=== PATIENT | female | born 1970 | race American Indian/Alaskan Native ===

== ENCOUNTER 2017-07-27 19:25 | Emergency (ER) | payer SELFPAY ==
[2017-07-27] MEDS ORDERED: NACL 0.9% 500 ML 500 ML IV ONE (19:43)
[2017-07-27] MEDS ORDERED: MOTRIN PO ONE ×3 (19:50→19:56)
[2017-07-27 20:11] LABS: Basophils % (Auto) 0.5 % (0.0-1.8); Hematocrit 41.9 % (30.3-42.9); Hemoglobin 14.5 gm/dl (10.1-14.3); Lymphocytes # (Auto) 0.8 K/mm3 (1.2-5.4); Lymphocytes % (Auto) 18.3 % (13.4-35.0); Mean Corpuscular HGB Conc 35 % (30-34); Mean Corpuscular Hemoglobin 32 pg (28-32); Mean Corpuscular Volume 92 fl (79-97); Monocytes # (Auto) 0.6 K/mm3 (0.0-0.8); Monocytes % (Auto) 13.5 % (0.0-7.3); Platelet Count 132 K/mm3 (140-440); Red Blood Count 4.56 M/mm3 (3.65-5.03); Red Cell Distribution Width 12.9 % (13.2-15.2)
[2017-07-27 20:22] LABS: INR 0.9 (0.87-1.13)
[2017-07-27 20:53] LABS: Bacteria,Urine 4+ /HPF (Negative); Bilirubin,Urine NEG (Negative); Blood,Urine SM (Negative); Color,Urine Yellow (Yellow); Mucus,Urine FEW /HPF; Protein,Urine <15 mg/dL mg/dL (Negative); Urobilinogen,Urine < 2.0 mg/dL (<2.0)
[2017-07-27] MEDS ORDERED: NACL 0.9% 1000 ML 1,000 ML IV ONE (20:55)
--- NOTE | 2017-07-27 20:55 | Emergency Department Report ---
ED General Adult HPI - General Chief complaint: Fever Stated complaint: SOB,CHEST PAIN,NECK,THROAT PAIN Time Seen by Provider: 07/27/17 20:43 Source: patient Mode of arrival: Ambulatory Limitations: No Limitations - History of Present Illness Initial comments: 46-year-old female here from [facility] she does have a history in 2016 of stage IV colon CA that the resected the also resected liver metastases and treated her with chemotherapy. She is here stating that she lost to follow-up for the last year has not been getting intermittent checkups. She thinks she is cancer free at this time but hasn't followed up. She is here with 2 days of fever up to 1 02.4 with yellowish cough. She does smoke and drink. No stiff neck or headache. She does have a sore throat clearing of intermittent epigastric pain with intermittent nausea vomiting with exposure to someone also had similar symptoms last week otherwise no night sweats or hemoptysis no recent travel -: Gradual, days(s) Location: chest, abdomen Radiation: non-radiation Severity scale (0 -10): 7 Improves with: none Worsens with: none Associated Symptoms: cough, fever/chills, malaise, nausea/vomiting, weakness. denies: chest pain, diaphoresis, headaches, loss of appetite, rash, seizure, shortness of breath - Related Data Previous Rx's Medication Instructions Recorded Last Taken Type Sulfamethoxazole/Trimethoprim 1 each PO BID #10 tablet 07/27/17 Unknown Rx [Bactrim DS TAB] Allergies Allergy/AdvReac Type Severity Reaction Status Date / Time No Known Allergies Allergy Unverified 07/27/17 19:34 ED Review of Systems ROS: Stated complaint: SOB,CHEST PAIN,NECK,THROAT PAIN Other details as noted in HPI Comment: All other systems reviewed and negative Constitutional: fever, malaise Eyes: denies: eye discharge, vision change ENT: denies: dental pain, hearing loss, epistaxis Respiratory: cough. denies: orthopnea, shortness of breath, SOB with exertion, SOB at rest, stridor Cardiovascular: denies: chest pain, palpitations, dyspnea on exertion, orthopnea , edema, syncope, paroxysmal nocturnal dyspnea Gastrointestinal: nausea, diarrhea. denies: constipation, hematemesis, melena, hematochezia Neurological: denies: headache, weakness, numbness, paresthesias, confusion, abnormal gait, vertigo ED Past Medical Hx - Past Medical History Previous Medical History?: Yes Hx Liver Disease: Yes (60% of Liver removed due to cancer) Hx of Cancer: Yes (Stage IV Colon Cancer) - Surgical History Past Surgical History?: Yes Additional Surgical History: Colon resection surgeries x 3 - Social History Smoking Status: Current Every Day Smoker - Medications Home Medications: Home Medications Medication Instructions Recorded Confirmed Last Taken Type Sulfamethoxazole/Trimethoprim 1 each PO BID #10 tablet 07/27/17 Unknown Rx [Bactrim DS TAB] ED Physical Exam - General Limitations: No Limitations General appearance: alert, anxious - Head Head exam: Present: atraumatic, normocephalic - Eye Eye exam: Present: PERRL, EOMI - ENT ENT exam: Present: other (no mass or exudate positive erythema) - Neck Neck exam: Present: normal inspection. Absent: tenderness, meningismus - Respiratory Respiratory exam: Present: normal lung sounds bilaterally, rhonchi. Absent: respiratory distress, wheezes, rales, decreased breath sounds, prolonged expiratory - Cardiovascular Cardiovascular Exam: Present: regular rate, normal rhythm, normal heart sounds - GI/Abdominal GI/Abdominal exam: Present: soft. Absent: distended, tenderness, guarding, rebound, rigid, mass, pulsatile mass - Extremities Exam Extremities exam: Present: normal inspection, normal capillary refill. Absent: joint swelling, calf tenderness - Back Exam Back exam: Present: normal inspection. Absent: CVA tenderness (L), muscle spasm , paraspinal tenderness, vertebral tenderness - Neurological Exam Neurological exam: Present: alert, oriented X3, CN II-XII intact. Absent: motor sensory deficit - Skin Skin exam: Absent: erythema, urticaria, vesicles, petechiae ED Course Vital Signs 07/27/17 07/27/17 07/27/17 19:37 19:57 20:44 Temperature 102.4 F H 102 F H Pulse Rate 120 H 120 H Respiratory 20 20 16 Rate Blood Pressure 114/73 Blood Pressure 112/72 [Left] O2 Sat by Pulse 97 95 Oximetry 07/27/17 07/27/17 07/27/17 20:57 21:40 23:00 Temperature 98.8 F 97.9 F Pulse Rate 99 H 97 H Respiratory 16 16 16 Rate Blood Pressure Blood Pressure 107/62 105/58 [Left] O2 Sat by Pulse 99 98 Oximetry ED Medical Decision Making - Lab Data Result diagrams: 07/27/17 19:47 07/27/17 19:47 - Radiology Data Radiology results: report reviewed - Medical Decision Making Laboratory studies negative rapid strep negative urine negative lactic acid decision was read as negative by the radiologist CT was ordered given her abdominal distention with nausea vomiting previous abdominal surgery to her colon cancer is no obstruction appreciated she did have some mild signs that would suggest a enteritis. She also has a productive sputum with a low-grade temp without pneumonia she was discharged on antibiotics for follow-up she has no acute abdomen at this time is nontoxic tolerated by mouth supple neck stable for outpatient follow-up Critical care attestation.: If time is entered above; I have spent that time in minutes in the direct care of this critically ill patient, excluding procedure time. ED Disposition Clinical Impression: Febrile illness, acute, Bronchitis, Gastroenteritis Disposition: TO HOME OR SELFCARE Is pt being admited?: No Condition: Stable Instructions: Acute Bronchitis (ED), Fever in Adults (ED) Additional Instructions: See the doctor listed or your regular doctor return immediately if new or alarming symptoms Prescriptions: Sulfamethoxazole/Trimethoprim [Bactrim DS TAB] 1 each PO BID #10 tablet Referrals: DELMI JOHNSON MD [Primary Care Provider] - 3-5 Days STEFAN LITTLE MD [Staff Physician] - 3-5 Days Time of Disposition: 23:41
[2017-07-27 21:22] LABS: Albumin 4.1 g/dL (3.9-5)
[2017-07-27 21:41] LABS: Alanine Aminotransferase 22 units/L (7-56); BUN/Creatinine Ratio 10; Blood Urea Nitrogen 7 mg/dL (7-17); Calcium 8.8 mg/dL (8.4-10.2); Hemolysis Index 6
--- NOTE | 2017-07-27 22:59 | Cat Scan Report ---
FINAL REPORT PROCEDURE: CT ABDOMEN PELVIS W CON TECHNIQUE: Computerized axial tomography of the abdomen and pelvis was performed after the IV injection of iodinated nonionic contrast. HISTORY: hx of partial colectomy/abd pain COMPARISON: No prior studies are available for comparison. FINDINGS: Visualized lower thorax: No significant abnormality. Liver: There are clips at the border of the right liver, with apparent partial resection. Spleen: Normal size and attenuation. Gallbladder and biliary system: The gallbladder is not well-visualized and may be absent or contracted. Pancreas: Normal. Adrenals: Normal. Kidneys: Normal. GI tract: There has been partial colectomy. Limited evaluation of the bowel loops due to lack of oral contrast. No acute inflammation is seen. Nonspecific air-fluid levels are seen in the colon, which can be seen with a diarrhea producing illness. No evidence of obstruction. Lymph nodes and mesentery: Normal. Vasculature: There are prominent veins in the pelvis which are nonspecific but can be associated with pelvic congestion syndrome. Bladder: Normal. Reproductive organs: Normal. Peritoneum: No free fluid. Musculoskeletal structures: No significant abnormality. Other: None. IMPRESSION: Air-fluid levels are seen in the colon which can be seen with a diarrhea producing illness. Consider further evaluation with oral contrast if symptoms persist. Otherwise no obvious bowel obstruction or inflammation is seen. Prominent vessels in the pelvis can be associated with pelvic congestion syndrome
--- NOTE | 2017-07-27 23:00 | XRay Report ---
FINAL REPORT PROCEDURE: XR CHEST ROUTINE 2V TECHNIQUE: PA and lateral chest radiographs were obtained. CPT 71422 HISTORY: Burning Cough, SOB COMPARISON: No prior studies are available for comparison. FINDINGS: Heart: Normal. Mediastinum/Vessels: Normal. Lungs/Pleural space: No infiltrate, effusion, or pneumothorax. Bony thorax: No acute osseous abnormality. Other: IMPRESSION: No pulmonary infiltrates are identified.
[2017-07-27 23:55] VITALS: BP 104/58
[2017-07-28] MEDS ORDERED: TYLENOL PO ONE (00:23)
[2017-07-28] MEDS ORDERED: TYLENOL ONE (00:23)
== END 2017-07-28 01:44 | disposition home or self-care (01) ==
LOC: ED 19:25
DX: J40 Bronchitis, not specified as acute or chronic (principal); K52.9 Noninfective gastroenteritis and colitis, unspecified; R50.9 Fever, unspecified; F17.200 Nicotine dependence, unspecified, uncomplicated
CPT/HCPCS: 36415; 71046; 74177; 80053; 81001; 82140; 82805; 84703; 85025; 85610; 87040; 87086; 87116; 87430; 93005; 93010; 96360; 99285; J7030; J7040; Q9967

== ENCOUNTER 2018-06-06 09:38 | Inpatient (IN) | payer MEDICARE ==
[2018-06-06] MEDS ORDERED: NACL 0.9% 1000 ML 1,000 ML IV ONE (10:08)
[2018-06-06 10:31] LABS: Bacteria,Urine 1+ /HPF (Negative); Bilirubin,Urine NEG (Negative); Blood,Urine NEG (Negative); Color,Urine Straw (Yellow); Protein,Urine <15 mg/dL mg/dL (Negative); Urobilinogen,Urine < 2.0 mg/dL (<2.0)
[2018-06-06 10:35] LABS: HCG Qualitative,Urine Negative (Negative)
[2018-06-06 10:41] LABS: Basophils % (Auto) 0.3 % (0.0-1.8); Eosinophils # (Auto) 0.2 K/mm3 (0.0-0.4); Eosinophils % (Auto) 1.5 % (0.0-4.3); Hematocrit 37.7 % (30.3-42.9); Hemoglobin 13.2 gm/dl (10.1-14.3); Lymphocytes # (Auto) 1.1 K/mm3 (1.2-5.4); Lymphocytes % (Auto) 10.4 % (13.4-35.0); Mean Corpuscular HGB Conc 35 % (30-34); Mean Corpuscular Volume 92 fl (79-97); Monocytes # (Auto) 0.9 K/mm3 (0.0-0.8); Monocytes % (Auto) 8.5 % (0.0-7.3); Platelet Count 263 K/mm3 (140-440); Red Blood Count 4.09 M/mm3 (3.65-5.03); Red Cell Distribution Width 12.2 % (13.2-15.2)
--- NOTE | 2018-06-06 10:51 | Emergency Department Report ---
ED General Adult HPI - General Chief complaint: Abdominal Pain Stated complaint: LEFT FLANK PAIN Time Seen by Provider: 06/06/18 10:06 Source: patient, EMS Mode of arrival: Stretcher Limitations: No Limitations - History of Present Illness Initial comments: 47-year-old female states that between 1 and 2 AM she began to experience a dull ache in the upper left flank area which did not radiate. She was transported via EMS to this facility receiving Toradol. She stated that this was of benefit. She denied nausea or vomiting. She states that she has not had pain like this before. She denies any specific problems urinating. She's had no fever or chills. Patient has a history of colon cancer since April 2015. She is not obtaining follow-up. She is status post 3 operative procedures and chemotherapy. She states that her cancer has not spread. She states that the procedures were related to obstruction and apparently an anastomotic leak. She does not have a colostomy. She does not take any current medications nor receive any regular follow-up. She was seen here in July and discharged. Apparently at that time showed a sodium of [address] which showed some air-fluid levels. She does not report any problems related to that visit or follow-up. -: Gradual, hour(s) Location: back Radiation: non-radiation Severity scale (0 -10): 7 Quality: aching Consistency: now resolved (largely resolved) Improves with: none Worsens with: none Associated Symptoms: denies other symptoms Treatments Prior to Arrival: other - Related Data Previous Rx's Medication Instructions Recorded Last Taken Type Sulfamethoxazole/Trimethoprim 1 each PO BID #10 tablet 07/27/17 Unknown Rx [Bactrim DS TAB] Allergies Allergy/AdvReac Type Severity Reaction Status Date / Time No Known Allergies Allergy Unverified 07/27/17 19:34 ED Review of Systems ROS: Stated complaint: LEFT FLANK PAIN Other details as noted in HPI Constitutional: other (reports weight loss but states she has not gotten on a scale). denies: chills, fever Eyes: denies: eye pain, eye discharge, vision change ENT: denies: ear pain, throat pain Respiratory: cough (cough with white sputum chronically which she states is secondary to "allergies"). denies: shortness of breath, wheezing Cardiovascular: denies: chest pain, palpitations Endocrine: no symptoms reported Gastrointestinal: denies: abdominal pain, nausea, diarrhea Genitourinary: denies: urgency, dysuria, discharge Musculoskeletal: as per HPI, back pain. denies: joint swelling, arthralgia Skin: denies: rash, lesions Neurological: denies: headache, weakness, paresthesias Psychiatric: denies: anxiety, depression Hematological/Lymphatic: denies: easy bleeding, easy bruising ED Past Medical Hx - Past Medical History Hx Liver Disease: Yes (60% of Liver removed due to cancer) - Surgical History Additional Surgical History: Colon resection surgeries x 3 - Social History Smoking Status: Current Every Day Smoker Substance Use Type: Alcohol - Medications Home Medications: Home Medications Medication Instructions Recorded Confirmed Last Taken Type Sulfamethoxazole/Trimethoprim 1 each PO BID #10 tablet 07/27/17 Unknown Rx [Bactrim DS TAB] ED Physical Exam - General Limitations: No Limitations General appearance: alert, in no apparent distress, cachectic (someone at least very asthenic) - Head Head exam: Present: atraumatic, normocephalic - Eye Eye exam: Present: normal appearance. Absent: scleral icterus - ENT ENT exam: Present: mucous membranes moist - Neck Neck exam: Present: normal inspection. Absent: tenderness, meningismus - Respiratory Respiratory exam: Present: normal lung sounds bilaterally. Absent: respiratory distress - Cardiovascular Cardiovascular Exam: Present: regular rate, normal rhythm. Absent: systolic murmur, diastolic murmur, rubs, gallop - GI/Abdominal GI/Abdominal exam: Present: soft, normal bowel sounds. Absent: distended, tenderness, guarding, rebound, rigid - Extremities Exam Extremities exam: Present: normal inspection - Back Exam Back exam: Present: normal inspection, CVA tenderness (L). Absent: full ROM, tenderness, CVA tenderness (R), muscle spasm, paraspinal tenderness, vertebral tenderness - Neurological Exam Neurological exam: Present: alert, oriented X3. Absent: motor sensory deficit - Psychiatric Psychiatric exam: Present: normal affect, normal mood - Skin Skin exam: Present: warm, dry, intact, normal color. Absent: rash ED Course Vital Signs 06/06/18 10:18 Temperature 98.8 F Pulse Rate 88 Respiratory 17 Rate Blood Pressure 140/77 [Right] O2 Sat by Pulse 97 Oximetry - Reevaluation(s) Reevaluation #1: CT shows left lower lobe infiltrate. I'm concerned the patient could have a postobstructive pneumonia. History is very atypical. I ordered a CT angiogram. I'm referring the patient to Dr. Robertson of the hospitalist service for further care and evaluation. 06/06/18 14:05 ED Medical Decision Making - Lab Data Result diagrams: 06/06/18 10:17 06/06/18 10:17 Laboratory Results - last 24 hr 06/06/18 06/06/18 10:14 10:17 WBC 10.4 RBC 4.09 Hgb 13.2 Hct 37.7 MCV 92 MCH 32 MCHC 35 H RDW 12.2 L Plt Count 263 Lymph % (Auto) 10.4 L Morrow % (Auto) 8.5 H Eos % (Auto) 1.5 Baso % (Auto) 0.3 Lymph # 1.1 L Morrow # 0.9 H Eos # 0.2 Baso # 0.0 Seg Neutrophils % 79.3 H Seg Neutrophils # 8.3 H Urine Color Straw Urine Turbidity Clear Urine pH 7.0 Ur Specific Clubb 1.003 Urine Protein <15 mg/dl Urine Glucose (UA) Neg Urine Ketones Neg Urine Blood Neg Urine Nitrite Neg Urine Bilirubin Neg Urine Urobilinogen < 2.0 Ur Leukocyte Esterase Mod Urine WBC (Auto) 36.0 H Urine RBC (Auto) 2.0 U Epithel Cells (Auto) 3.0 Urine Bacteria (Auto) 1+ Urine HCG, Qual Negative Laboratory Results - last 24 hr 06/06/18 06/06/18 06/06/18 10:14 10:17 10:17 WBC 10.4 RBC 4.09 Hgb 13.2 Hct 37.7 MCV 92 MCH 32 MCHC 35 H RDW 12.2 L Plt Count 263 Lymph % (Auto) 10.4 L Morrow % (Auto) 8.5 H Eos % (Auto) 1.5 Baso % (Auto) 0.3 Lymph # 1.1 L Morrow # 0.9 H Eos # 0.2 Baso # 0.0 Seg Neutrophils % 79.3 H Seg Neutrophils # 8.3 H PT 13.1 INR 0.94 APTT 26.9 Sodium Potassium Chloride Carbon Dioxide Anion Gap BUN Creatinine Estimated GFR BUN/Creatinine Ratio Glucose Calcium Magnesium Total Bilirubin Direct Bilirubin AST ALT Alkaline Phosphatase Total Protein Albumin Albumin/Globulin Ratio Lipase Urine Color Straw Urine Turbidity Clear Urine pH 7.0 Ur Specific Clubb 1.003 Urine Protein <15 mg/dl Urine Glucose (UA) Neg Urine Ketones Neg Urine Blood Neg Urine Nitrite Neg Urine Bilirubin Neg Urine Urobilinogen < 2.0 Ur Leukocyte Esterase Mod Urine WBC (Auto) 36.0 H Urine RBC (Auto) 2.0 U Epithel Cells (Auto) 3.0 Urine Bacteria (Auto) 1+ Urine HCG, Qual Negative 06/06/18 10:17 WBC RBC Hgb Hct MCV MCH MCHC RDW Plt Count Lymph % (Auto) Morrow % (Auto) Eos % (Auto) Baso % (Auto) Lymph # Morrow # Eos # Baso # Seg Neutrophils % Seg Neutrophils # PT INR APTT Sodium 137 Potassium 3.6 Chloride 99.3 Carbon Dioxide 25 Anion Gap 16 BUN 5 L Creatinine 0.6 L Estimated GFR > 60 BUN/Creatinine Ratio 8 Glucose 92 Calcium 8.8 Magnesium 1.90 Total Bilirubin 0.50 Direct Bilirubin < 0.2 AST 18 ALT 15 Alkaline Phosphatase 85 Total Protein 7.0 Albumin 3.8 L Albumin/Globulin Ratio 1.2 Lipase 37 Urine Color Urine Turbidity Urine pH Ur Specific Clubb Urine Protein Urine Glucose (UA) Urine Ketones Urine Blood Urine Nitrite Urine Bilirubin Urine Urobilinogen Ur Leukocyte Esterase Urine WBC (Auto) Urine RBC (Auto) U Epithel Cells (Auto) Urine Bacteria (Auto) Urine HCG, Qual Critical care attestation.: If time is entered above; I have spent that time in minutes in the direct care of this critically ill patient, excluding procedure time. ED Disposition Clinical Impression: History of colon cancer, Cachexia Pneumonia Qualifiers: Pneumonia type: due to unspecified organism Laterality: left Lung location: lower lobe of lung Qualified Code(s): J18.1 - Lobar pneumonia, unspecified organism Disposition: OP ADMIT IP TO THIS HOSP Is pt being admited?: Yes Does the pt Need Aspirin: Yes Condition: Stable Instructions: Abdominal Pain (ED), Bacterial Pneumonia (ED) Referrals: DANIELLE BUENO MD [Primary Care Provider] - 3-5 Days Time of Disposition: 14:07
[2018-06-06 10:55] LABS: Alanine Aminotransferase 15 units/L (7-56); Albumin 3.8 g/dL (3.9-5); BUN/Creatinine Ratio 8; Blood Urea Nitrogen 5 mg/dL (7-17); Calcium 8.8 mg/dL (8.4-10.2); Hemolysis Index 3; INR 0.94 (0.87-1.13); Partial Thromboplastin Time 26.9 Sec. (24.2-36.6)
[2018-06-06 11:04] LABS: Bilirubin,Direct < 0.2 mg/dL (0-0.2)
[2018-06-06] MEDS ORDERED: ZOFRAN IV ONE (11:46)
[2018-06-06] MEDS ORDERED: MORPHINE IV ONE (11:46)
[2018-06-06] MEDS ORDERED: ROCEPHIN/NS 1 GM/50 ML 1 GM/50 ML BAG IV ONE (11:59)
--- NOTE | 2018-06-06 12:16 | Cat Scan Report ---
PROCEDURE: CT ABDOMEN PELVIS WO CON TECHNIQUE: Noncontrast CT of the abdomen and pelvis was performed. No IV or oral contrast material ad ministered. Axial images and coronal and sagittal reformatted images were obtained. HISTORY: left flank pain COMPARISON: 07/27/2017 FINDINGS: There is infiltrate in the left lower lobe which is consistent with pneumonia. There are stable postoperative findings. Within the limitations of a noncontrast exam, the visualized liver, spleen, pancreas, adrenal glands and kidneys demonstrate no significant abnormality. There is no nephrolithiasis, hydronephrosis or other evidence for acute obstructive uropathy. There is no abnormal fluid collection seen. There is no free intraperitoneal air. The bladder is distended but otherwise unremarkable. There is no abnormal pelvic fluid collection or mass seen. IMPRESSION: Left lower lobe pneumonia. This document is electronically signed by Chioma Aguila MD., June 06 2018 12:14:56 PM ET
[2018-06-06] MEDS ORDERED: LEVAQUIN 750MG/150ML 750 MG/150 ML BAG IV ONE (14:06)
[2018-06-06] MEDS ORDERED: BABY ASPIRIN PO ONE (14:08)
--- NOTE | 2018-06-06 14:51 | History and Physical Report ---
History of Present Illness Date of examination: 06/06/18 Date of admission: 06/06/18 Chief complaint: L Flank and Ifraaxillary pain History of present illness: 47-year-old female Colon cancer ,S/p colon resection and Hepatectomy about 18 months ago comes in for L flank pain and Lower L Infraaxillary area.No fever or chills.Has cough for 2 to 3 weeks.No recent travel Past Medical History Hx Liver Disease: Yes (60% of Liver removed due to cancer) Paola Jaeger with resection Surgical History Additional Surgical History: Colon resection surgeries x 3 Social History Smoking Status: Current Every Day Smoker Substance Use Type: Alcohol Medications Home Medications: Home Medications Medication Instructions Recorded Confirmed Last Taken Type Sulfamethoxazole/Trimethoprim 1 each PO BID #10 tablet 07/27/17 Unknown Rx [Bactrim DS TAB] Review of Systems ROS: Stated complaint: LEFT FLANK PAIN Other details as noted in HPI Constitutional: other (reports weight loss but states she has not gotten on a scale). denies: chills, fever Eyes: denies: eye pain, eye discharge, vision change ENT: denies: ear pain, throat pain Respiratory: cough (cough with white sputum chronically which she states is secondary to "allergies"). denies: shortness of breath, wheezing Cardiovascular: denies: chest pain, palpitations Endocrine: no symptoms reported Gastrointestinal: denies: abdominal pain, nausea, diarrhea Genitourinary: denies: urgency, dysuria, discharge Musculoskeletal: as per HPI, back pain. denies: joint swelling, arthralgia Skin: denies: rash, lesions Neurological: denies: headache, weakness, paresthesias Psychiatric: denies: anxiety, depression Hematological/Lymphatic: denies: easy bleeding, easy bruising Medications and Allergies Allergies Allergy/AdvReac Type Severity Reaction Status Date / Time No Known Allergies Allergy Unverified 07/27/17 19:34 Home Medications Medication Instructions Recorded Confirmed Last Taken Type Sulfamethoxazole/Trimethoprim 1 each PO BID #10 tablet 07/27/17 Unknown Rx [Bactrim DS TAB] Active Meds: Active Medications Levofloxacin/Dextrose (Levaquin 750mg/150ml) 750 mg in 150 mls @ 100 mls/hr IV ONCE ONE; Protocol Stop: 06/06/18 15:35 Exam - Constitutional Vitals: Temp Pulse Resp BP Pulse Ox 98.8 F 88 17 140/77 97 06/06/18 10:18 06/06/18 10:18 06/06/18 10:18 06/06/18 10:18 06/06/18 10:18 General appearance: Present: no acute distress, well-nourished - EENT Eyes: Present: PERRL ENT: hearing intact, clear oral mucosa - Neck Neck: Present: supple, normal ROM - Respiratory Respiratory effort: normal Respiratory: bilateral: CTA, rhonchi - Cardiovascular Heart rate: 88 Rhythm: regular Heart Sounds: Present: S1 & S2. Absent: rub, click - Extremities Extremities: no ischemia, pulses intact, pulses symmetrical, No edema Peripheral Pulses: within normal limits - Abdominal General gastrointestinal: Present: soft, non-tender, non-distended, normal bowel sounds Female genitourinary: Present: normal - Rectal Rectal Exam: deferred - Integumentary Integumentary: Present: clear, warm, dry - Musculoskeletal Musculoskeletal: gait normal, strength equal bilaterally - Psychiatric Psychiatric: appropriate mood/affect, intact judgment & insight - Neurologic Neurologic: CNII-XII intact, moves all extremities Results - Labs CBC & Chem 7: 06/07/18 05:04 06/07/18 05:04 Labs: Laboratory Last Values WBC 10.4 K/mm3 (4.5-11.0) 06/06/18 10:17 RBC 4.09 M/mm3 (3.65-5.03) 06/06/18 10:17 Hgb 13.2 gm/dl (10.1-14.3) 06/06/18 10:17 Hct 37.7 % (30.3-42.9) 06/06/18 10:17 MCV 92 fl (79-97) 06/06/18 10:17 MCH 32 pg (28-32) 06/06/18 10:17 MCHC 35 % (30-34) H 06/06/18 10:17 RDW 12.2 % (13.2-15.2) L 06/06/18 10:17 Plt Count 263 K/mm3 (140-440) 06/06/18 10:17 Lymph % (Auto) 10.4 % (13.4-35.0) L 06/06/18 10:17 [place] % (Auto) 8.5 % (0.0-7.3) H 06/06/18 10:17 Eos % (Auto) 1.5 % (0.0-4.3) 06/06/18 10:17 Baso % (Auto) 0.3 % (0.0-1.8) 06/06/18 10:17 Lymph # 1.1 K/mm3 (1.2-5.4) L 06/06/18 10:17 [place] # 0.9 K/mm3 (0.0-0.8) H 06/06/18 10:17 Eos # 0.2 K/mm3 (0.0-0.4) 06/06/18 10:17 Baso # 0.0 K/mm3 (0.0-0.1) 06/06/18 10:17 Seg Neutrophils % 79.3 % (40.0-70.0) H 06/06/18 10:17 Seg Neutrophils # 8.3 K/mm3 (1.8-7.7) H 06/06/18 10:17 PT 13.1 Sec. (12.2-14.9) 06/06/18 10:17 INR 0.94 (0.87-1.13) 06/06/18 10:17 APTT 26.9 Sec. (24.2-36.6) 06/06/18 10:17 Sodium 137 mmol/L (137-145) 06/06/18 10:17 Potassium 3.6 mmol/L (3.6-5.0) 06/06/18 10:17 Chloride 99.3 mmol/L (98-107) 06/06/18 10:17 Carbon Dioxide 25 mmol/L (22-30) 06/06/18 10:17 Anion Gap 16 mmol/L 06/06/18 10:17 BUN 5 mg/dL (7-17) L 06/06/18 10:17 Creatinine 0.6 mg/dL (0.7-1.2) L 06/06/18 10:17 Estimated GFR > 60 ml/min 06/06/18 10:17 BUN/Creatinine Ratio 8 % 06/06/18 10:17 Glucose 92 mg/dL (65-100) 06/06/18 10:17 Lactic Acid 0.70 mmol/L (0.7-2.0) 06/06/18 12:44 Calcium 8.8 mg/dL (8.4-10.2) 06/06/18 10:17 Magnesium 1.90 mg/dL (1.7-2.3) 06/06/18 10:17 Total Bilirubin 0.50 mg/dL (0.1-1.2) 06/06/18 10:17 Direct Bilirubin < 0.2 mg/dL (0-0.2) 06/06/18 10:17 AST 18 units/L (5-40) 06/06/18 10:17 ALT 15 units/L (7-56) 06/06/18 10:17 Alkaline Phosphatase 85 units/L (35-129) 06/06/18 10:17 Total Protein 7.0 g/dL (6.3-8.2) 06/06/18 10:17 Albumin 3.8 g/dL (3.9-5) L 06/06/18 10:17 Albumin/Globulin Ratio 1.2 % 06/06/18 10:17 Lipase 37 units/L (13-60) 06/06/18 10:17 Urine Color Straw (Yellow) 06/06/18 10:14 Urine Turbidity Clear (Clear) 06/06/18 10:14 Urine pH 7.0 (5.0-7.0) 06/06/18 10:14 Ur Specific [place] 1.003 (1.003-1.030) 06/06/18 10:14 Urine Protein <15 mg/dl mg/dL (Negative) 06/06/18 10:14 Urine Glucose (UA) Neg mg/dL (Negative) 06/06/18 10:14 Urine Ketones Neg mg/dL (Negative) 06/06/18 10:14 Urine Blood Neg (Negative) 06/06/18 10:14 Urine Nitrite Neg (Negative) 06/06/18 10:14 Urine Bilirubin Neg (Negative) 06/06/18 10:14 Urine Urobilinogen < 2.0 mg/dL (<2.0) 06/06/18 10:14 Ur Leukocyte Esterase Mod (Negative) 06/06/18 10:14 Urine WBC (Auto) 36.0 /HPF (0.0-6.0) H 06/06/18 10:14 Urine RBC (Auto) 2.0 /HPF (0.0-6.0) 06/06/18 10:14 U Epithel Cells (Auto) 3.0 /HPF (0-13.0) 06/06/18 10:14 Urine Bacteria (Auto) 1+ /HPF (Negative) 06/06/18 10:14 Urine HCG, Qual Negative (Negative) 06/06/18 10:14 Short CBC 06/06/18 06/07/18 Range/Units 10:17 05:04 WBC 10.4 4.5 (4.5-11.0) K/mm3 Hgb 13.2 11.9 (10.1-14.3) gm/dl Hct 37.7 33.3 (30.3-42.9) % Plt Count 263 222 (140-440) K/mm3 BMP 06/06/18 06/07/18 10:17 05:04 Sodium 137 142 Potassium 3.6 3.5 L Chloride 99.3 107.8 H Carbon Dioxide 25 25 BUN 5 L 4 L Creatinine 0.6 L 0.7 Glucose 92 125 H Calcium 8.8 8.1 L Liver Function 06/06/18 06/07/18 Range/Units 10:17 05:04 Total Bilirubin 0.50 0.20 (0.1-1.2) mg/dL Direct Bilirubin < 0.2 (0-0.2) mg/dL AST 18 12 (5-40) units/L ALT 15 11 (7-56) units/L Alkaline Phosphatase 85 64 (35-129) units/L Albumin 3.8 L 2.9 L (3.9-5) g/dL Urine 06/06/18 Range/Units 10:14 Urine Color Straw (Yellow) Urine pH 7.0 (5.0-7.0) Ur Specific [place] 1.003 (1.003-1.030) Urine Protein <15 mg/dl (Negative) mg/dL Urine Glucose (UA) Neg (Negative) mg/dL - Imaging and Cardiology CT scan - abdomen: report reviewed Imaging and Cardiology: CT Abd: IMPRESSION: Left lower lobe pneumonia. Chest CTA IMPRESSION: Left lower lobe pneumonia. Trace left pleural fluid. There is no aortic dissection or pulmonary embolism seen. Assessment and Plan Advance Directives: Yes (Full code) VTE prophylaxis?: Chemical Plan of care discussed with patient/family: Yes - Patient Problems (1) Pneumonia Current Visit: Yes Status: Acute Qualifiers: Pneumonia type: due to unspecified organism Laterality: left Lung location: lower lobe of lung Qualified Code(s): J18.1 - Lobar pneumonia, unspecified organism Plan to address problem: Patient initiated on Ceftriaxone and Zithromax IV (2) Hypokalemia Current Visit: Yes Status: Acute Plan to address problem: Supplemented (3) Malnutrition Current Visit: Yes Status: Chronic Qualifiers: Protein-calorie malnutrition severity: severe Plan to address problem: Dietitian consult (4) History of colon cancer Current Visit: Yes Status: Acute Plan to address problem: Apparently in remission To follow with oncology (5) DVT prophylaxis Current Visit: Yes Status: Acute Plan to address problem: On Lovneox
--- NOTE | 2018-06-06 14:58 | Cat Scan Report ---
PROCEDURE: CT ANGIO CHEST TECHNIQUE: CT angiography of the chest was performed. IV contrast was administered. Axial images and coronal and sagittal reformatted images were obtained. Fan MIP reformatted images were also obtained. HISTORY: pulmonary infiltrate h/o colon CA COMPARISON: None FINDINGS: There are no abnormal pulmonary arterial filling defects seen to indicate acute pulmonary emboli. There is no aortic dissection seen. There is no abnormal mediastinal or hilar mass seen. There is an area of consolidation left lower lobe which is consistent with pneumonia. There is trace left pleural fluid. There is no pneumothorax seen. IMPRESSION: Left lower lobe pneumonia. Trace left pleural fluid. There is no aortic dissection or pulmonary embolism seen. This document is electronically signed by Chioma Aguila MD., June 06 2018 02:56:01 PM ET
[2018-06-06] MEDS ORDERED: ZOFRAN IV PRN (15:09)
[2018-06-06] MEDS ORDERED: TYLENOL PO PRN (15:09)
[2018-06-06] MEDS ORDERED: SODIUM CHLORIDE FLUSH SYRINGE 10 ML IV PRN (15:09)
[2018-06-06] MEDS: SODIUM CHLORIDE FLUSH SYRINGE 10 ML IV SCH ×3 (16:05→21:08)
[2018-06-06] MEDS: ZITHROMAX 500 MG in NACL 0.9% 250ML 250 ML IV SCH (16:28)
[2018-06-06] MEDS: LOVENOX SUB-Q SCH (16:28)
[2018-06-06] MEDS: PEPCID PO SCH ×2 (16:28→21:05)
[2018-06-06] MEDS: ROCEPHIN/NS 2 GM/100 ML 2 GM/100 ML BAG IV SCH (18:09)
[2018-06-06] MEDS: D5NS 1,000 ML IV SCH (20:29)
[2018-06-06] MEDS: PERCOCET 5/325 PO PRN (20:40)
[2018-06-07 05:26] LABS: Basophils # (Auto) 0.1 K/mm3 (0.0-0.1); Basophils % (Auto) 1.3 % (0.0-1.8); Eosinophils # (Auto) 0.2 K/mm3 (0.0-0.4); Eosinophils % (Auto) 4.4 % (0.0-4.3); Hematocrit 33.3 % (30.3-42.9); Hemoglobin 11.9 gm/dl (10.1-14.3); Lymphocytes # (Auto) 1.3 K/mm3 (1.2-5.4); Lymphocytes % (Auto) 28.1 % (13.4-35.0); Mean Corpuscular HGB Conc 36 % (30-34); Mean Corpuscular Volume 94 fl (79-97); Monocytes # (Auto) 0.5 K/mm3 (0.0-0.8); Monocytes % (Auto) 11.2 % (0.0-7.3); Red Blood Count 3.53 M/mm3 (3.65-5.03); Red Cell Distribution Width 12.1 % (13.2-15.2)
[2018-06-07 05:52] LABS: Alanine Aminotransferase 11 units/L (7-56); Albumin 2.9 g/dL (3.9-5); BUN/Creatinine Ratio 6; Blood Urea Nitrogen 4 mg/dL (7-17); Calcium 8.1 mg/dL (8.4-10.2); Hemolysis Index 7
[2018-06-07 06:21] LABS: Platelet Count 222 K/mm3 (140-440)
[2018-06-07] MEDS: D5NS 1,000 ML IV SCH (10:00)
[2018-06-07] MEDS: HABITROL TD SCH (10:03)
[2018-06-07] MEDS: ROCEPHIN/NS 2 GM/100 ML 2 GM/100 ML BAG IV SCH (10:03)
[2018-06-07] MEDS: PEPCID PO SCH ×2 (10:03→23:19)
[2018-06-07] MEDS: SODIUM CHLORIDE FLUSH SYRINGE 10 ML IV SCH ×2 (10:04→23:27)
[2018-06-07] MEDS: PERCOCET 5/325 PO PRN (10:04)
[2018-06-07] MEDS: ZITHROMAX 500 MG in NACL 0.9% 250ML 250 ML IV SCH (10:05)
[2018-06-07] MEDS: LOVENOX SUB-Q SCH (10:06)
--- NOTE | 2018-06-07 11:45 | Progress Note ---
Assessment and Plan Assessment and plan: --Possible pneumonia/community-acquired CT chest left pneumonia, continue IV Levaquin , follow cultures, Oxygen as needed --Congestive heart failure ; probably systolic dysfunction Unknown ejection fraction , diuretics , beta blockers , katalina inhibitors echocardiogram for LV function, supportive care --Chest pain : Mild improvement Cardiac enzymes negative, serial EKGs Echocardiogram for LV function and ejection fraction Aspirin, beta blockers, katalina inhibitors, nitrates, statins Lexiscan stress test if needed Cardiology evaluation if needed --Hypertension; moderate control Beta blockers, katalina inhibitors, hydralazine when necessary --Severe malnutrition; hypoalbuminemia albumin 2.9 Nutrition supplements supportive care --History of colon cancer --Obesity; BMI 33.7, Advised weight reduction and medically stable --DVT prophylaxis; Lovenox Plan of care reviewed with the patient History Interval history: Patient seen and examined in medical records reviewed Admitted with worsening shortness of breath and pneumonia Patient feels slightly better,Mild shortness of breath Activity: Oriented 3, Vital signs noted Hospitalist Physical - Constitutional Vitals: Temp Pulse Resp BP Pulse Ox 98.4 F 64 18 118/78 100 06/07/18 06:23 06/07/18 06:23 06/07/18 06:23 06/07/18 06:23 06/07/18 06:23 General appearance: Present: no acute distress, well-nourished - EENT Eyes: Present: PERRL, EOM intact - Neck Neck: Present: supple, normal ROM - Respiratory Respiratory effort: normal Respiratory: bilateral: diminished, rhonchi, negative: rales, wheezing - Cardiovascular Rhythm: regular Heart Sounds: Present: S1 & S2 - Extremities Extremities: no ischemia, No edema - Abdominal General gastrointestinal: soft, non-tender, non-distended, normal bowel sounds - Integumentary Integumentary: Present: clear, warm - Psychiatric Psychiatric: appropriate mood/affect, cooperative - Neurologic Neurologic: CNII-XII intact, moves all extremities Results - Labs CBC & Chem 7: 06/07/18 05:04 06/07/18 05:04 Labs: Laboratory Last Values WBC 4.5 K/mm3 (4.5-11.0) 06/07/18 05:04 RBC 3.53 M/mm3 (3.65-5.03) L 06/07/18 05:04 Hgb 11.9 gm/dl (10.1-14.3) 06/07/18 05:04 Hct 33.3 % (30.3-42.9) 06/07/18 05:04 MCV 94 fl (79-97) 06/07/18 05:04 MCH 34 pg (28-32) H 06/07/18 05:04 MCHC 36 % (30-34) H 06/07/18 05:04 RDW 12.1 % (13.2-15.2) L 06/07/18 05:04 Plt Count 222 K/mm3 (140-440) 06/07/18 05:04 Lymph % (Auto) 28.1 % (13.4-35.0) 06/07/18 05:04 [place] % (Auto) 11.2 % (0.0-7.3) H 06/07/18 05:04 Eos % (Auto) 4.4 % (0.0-4.3) H 06/07/18 05:04 Baso % (Auto) 1.3 % (0.0-1.8) 06/07/18 05:04 Lymph # 1.3 K/mm3 (1.2-5.4) 06/07/18 05:04 [place] # 0.5 K/mm3 (0.0-0.8) 06/07/18 05:04 Eos # 0.2 K/mm3 (0.0-0.4) 06/07/18 05:04 Baso # 0.1 K/mm3 (0.0-0.1) 06/07/18 05:04 Seg Neutrophils % 55.0 % (40.0-70.0) 06/07/18 05:04 Seg Neutrophils # 2.5 K/mm3 (1.8-7.7) 06/07/18 05:04 PT 13.1 Sec. (12.2-14.9) 06/06/18 10:17 INR 0.94 (0.87-1.13) 06/06/18 10:17 APTT 26.9 Sec. (24.2-36.6) 06/06/18 10:17 Sodium 142 mmol/L (137-145) 06/07/18 05:04 Potassium 3.5 mmol/L (3.6-5.0) L 06/07/18 05:04 Chloride 107.8 mmol/L (98-107) H 06/07/18 05:04 Carbon Dioxide 25 mmol/L (22-30) 06/07/18 05:04 Anion Gap 13 mmol/L 06/07/18 05:04 BUN 4 mg/dL (7-17) L 06/07/18 05:04 Creatinine 0.7 mg/dL (0.7-1.2) 06/07/18 05:04 Estimated GFR > 60 ml/min 06/07/18 05:04 BUN/Creatinine Ratio 6 % 06/07/18 05:04 Glucose 125 mg/dL (65-100) H 06/07/18 05:04 Hemoglobin A1c 6.0 % (4-6) 06/06/18 10:17 Lactic Acid 0.70 mmol/L (0.7-2.0) 06/06/18 12:44 Calcium 8.1 mg/dL (8.4-10.2) L 06/07/18 05:04 Magnesium 1.90 mg/dL (1.7-2.3) 06/06/18 10:17 Total Bilirubin 0.20 mg/dL (0.1-1.2) 06/07/18 05:04 Direct Bilirubin < 0.2 mg/dL (0-0.2) 06/06/18 10:17 AST 12 units/L (5-40) 06/07/18 05:04 ALT 11 units/L (7-56) 06/07/18 05:04 Alkaline Phosphatase 64 units/L (35-129) 06/07/18 05:04 Total Protein 5.3 g/dL (6.3-8.2) L D 06/07/18 05:04 Albumin 2.9 g/dL (3.9-5) L 06/07/18 05:04 Albumin/Globulin Ratio 1.2 % 06/07/18 05:04 Lipase 37 units/L (13-60) 06/06/18 10:17 Urine Color Straw (Yellow) 06/06/18 10:14 Urine Turbidity Clear (Clear) 06/06/18 10:14 Urine pH 7.0 (5.0-7.0) 06/06/18 10:14 Ur Specific [place] 1.003 (1.003-1.030) 06/06/18 10:14 Urine Protein <15 mg/dl mg/dL (Negative) 06/06/18 10:14 Urine Glucose (UA) Neg mg/dL (Negative) 06/06/18 10:14 Urine Ketones Neg mg/dL (Negative) 06/06/18 10:14 Urine Blood Neg (Negative) 06/06/18 10:14 Urine Nitrite Neg (Negative) 06/06/18 10:14 Urine Bilirubin Neg (Negative) 06/06/18 10:14 Urine Urobilinogen < 2.0 mg/dL (<2.0) 06/06/18 10:14 Ur Leukocyte Esterase Mod (Negative) 06/06/18 10:14 Urine WBC (Auto) 36.0 /HPF (0.0-6.0) H 06/06/18 10:14 Urine RBC (Auto) 2.0 /HPF (0.0-6.0) 06/06/18 10:14 U Epithel Cells (Auto) 3.0 /HPF (0-13.0) 06/06/18 10:14 Urine Bacteria (Auto) 1+ /HPF (Negative) 06/06/18 10:14 Urine HCG, Qual Negative (Negative) 06/06/18 10:14 Active Medications - Current Medications Current Medications: Generic Name Dose Route Start Last Admin Trade Name Freq PRN Reason Stop Dose Admin Acetaminophen 650 mg 06/06/18 15:09 Tylenol PO Q4H PRN Pain MILD(1-3)/Fever >100.5/HARRIS Enoxaparin Sodium 40 mg 06/06/18 16:00 06/07/18 10:06 Lovenox SUB-Q 40 mg QDAY IGLESIA Administration Famotidine 20 mg 06/06/18 16:00 06/07/18 10:03 Pepcid PO 20 mg BID IGLESIA Administration Azithromycin 500 mg/ Sodium 250 mls @ 250 mls/hr 06/06/18 16:00 06/07/18 10:05 Chloride IV 250 mls/hr Q24HR IGLESIA Administration Ceftriaxone Sodium 2 gm in 100 mls @ 200 mls/hr 06/06/18 16:00 06/07/18 10:03 Rocephin/Ns 2 Gm/100 Ml IV 200 mls/hr Q24HR IGLESIA Administration Protocol Nicotine 7 mg 06/07/18 10:00 06/07/18 10:03 Habitrol TD 7 mg QDAY IGLESIA Administration Ondansetron HCl 4 mg 06/06/18 15:09 Zofran IV Q8H PRN Nausea And Vomiting Oxycodone/Acetaminophen 1 tab 06/06/18 15:16 06/07/18 10:04 Percocet 5/325 PO 1 tab Q6H PRN Administration Pain, Moderate (4-6) Sodium Chloride 10 ml 06/06/18 16:00 06/07/18 10:04 Sodium Chloride Flush Syringe 10 Ml IV 10 ml BID ILGESIA Administration Sodium Chloride 10 ml 06/06/18 15:09 Sodium Chloride Flush Syringe 10 Ml IV PRN PRN LINE FLUSH
[2018-06-07] MEDS ORDERED: AFLURIA QUAD 2018-2019 SYRINGE IM ONE (12:00)
[2018-06-08] MEDS: ROCEPHIN/NS 2 GM/100 ML 2 GM/100 ML BAG IV SCH (09:04)
[2018-06-08] MEDS: ZITHROMAX PO SCH (09:05)
[2018-06-08] MEDS: LOVENOX SUB-Q SCH (09:05)
[2018-06-08] MEDS: PEPCID PO SCH ×2 (09:05→22:28)
[2018-06-08] MEDS: HABITROL TD SCH (09:06)
[2018-06-08] MEDS: SODIUM CHLORIDE FLUSH SYRINGE 10 ML IV SCH ×2 (10:03→22:29)
[2018-06-08 11:05] LABS: BUN/Creatinine Ratio 7; Blood Urea Nitrogen 4 mg/dL (7-17); Calcium 8.3 mg/dL (8.4-10.2); Hemolysis Index 3
[2018-06-09] MEDS: PERCOCET 5/325 PO PRN ×2 (01:25→09:27)
[2018-06-09] MEDS: ROCEPHIN/NS 2 GM/100 ML 2 GM/100 ML BAG IV SCH (09:27)
[2018-06-09] MEDS: LOVENOX SUB-Q SCH (09:28)
[2018-06-09] MEDS: HABITROL TD SCH (09:28)
[2018-06-09] MEDS: PEPCID PO SCH (09:28)
[2018-06-09] MEDS: ZITHROMAX PO SCH (09:28)
--- NOTE | 2018-06-09 13:29 | Discharge Summary ---
Providers - Providers Date of Admission: 06/06/18 15:09 Date of discharge: 06/09/18 Attending physician: BERNARDO MARTIN 06/06/18 Consult to Case Management [CONS] Routine Services Needed at Discharge: [facility] Sander Notified:: copy given to CM. 06/06/18 15:11 Consult to Dietitian/Nutrition [CONS] Routine Physician Instructions: Reason For Exam: anorexia Reason for Consult: Diet education [facility] Reason for admission: worsening shortness of breath and pneumonia Condition: Stable Pertinent studies: CT abdomen and pelvis; left lower lobe pneumonia CTA chest; left lower lobe pneumonia trace pleural effusion no PE Echocardiogram Hospital course: 47yr Old female patient was admitted through emergency room with worsening shortness of breath and pneumonia Patient was empirically managed with antibiotics and supportive care, Symptoms significantly improved Today patient is comfortable no new complaints vital signs stable, Physical examination is unremarkable Patient is hemodynamically and clinically stable at discharge Discharge diagnoses; --Possible pneumonia/community-acquired CT chest left pneumonia, continue IV Levaquin , follow cultures, Oxygen as needed --Congestive heart failure ; probably systolic dysfunction Unknown ejection fraction , diuretics , beta blockers , katalina inhibitors echocardiogram for LV function, supportive care --Chest pain : Mild improvement Cardiac enzymes negative, serial EKGs Echocardiogram for LV function and ejection fraction Aspirin, beta blockers, katalina inhibitors, nitrates, statins Lexiscan stress test if needed Cardiology evaluation if needed --Hypertension; moderate control Beta blockers, katalina inhibitors, hydralazine when necessary --Severe malnutrition; hypoalbuminemia albumin 2.9 Nutrition supplements supportive care --History of colon cancer --Obesity; BMI 33.7, Advised weight reduction and medically stable --DVT prophylaxis; Lovenox Patient is stable at discharge Disposition: [facility] TO HOME OR SELFCARE Time spent for discharge: 32 min Core Measure Documentation - Palliative Care Palliative Care/ Comfort Measures: Not Applicable - Core Measures Any of the following diagnoses?: none Exam - Constitutional Vitals: Temp Pulse Resp BP Pulse Ox 98.0 F 71 18 101/47 99 06/09/18 05:37 06/09/18 05:37 06/09/18 05:37 06/09/18 05:37 06/09/18 05:37 General appearance: Present: no acute distress, well-nourished - EENT Eyes: Present: PERRL, EOM intact - Neck Neck: Present: supple, normal ROM - Respiratory Respiratory effort: normal Respiratory: bilateral: diminished, negative: rales, rhonchi, wheezing - Cardiovascular Rhythm: regular Heart Sounds: Present: S1 & S2 - Extremities Extremities: no ischemia, No edema - Abdominal General gastrointestinal: Present: soft, non-tender, non-distended, normal bowel sounds - Integumentary Integumentary: Present: clear, warm - Musculoskeletal Musculoskeletal: strength equal bilaterally - Psychiatric Psychiatric: appropriate mood/affect, cooperative - Neurologic Neurologic: CNII-XII intact, moves all extremities Plan Activity: advance as tolerated Diet: regular Follow up with: DANIELLE BUENO MD [Primary Care Provider] - 3-5 Days Prescriptions: levoFLOXacin [Levaquin] 750 mg PO QDAY #5 tablet Famotidine [Pepcid] 20 mg PO BID #20 tablet oxyCODONE /ACETAMINOPHEN [Percocet 5/325 mg] 1 tab PO BID PRN #6 tablet PRN Reason: Pain, Moderate (4-6)
[2018-06-09 14:16] VITALS: BP 102/57
== END 2018-06-09 16:49 | disposition home or self-care (01) | DRG 193 ==
LOC: ED 09:38 → 3A 15:09
PROVIDERS: ADMIT Internal Medicine; ATTEND Internal Medicine
DX: J18.1 Lobar pneumonia, unspecified organism (principal); E43 Unspecified severe protein-calorie malnutrition; Z68.1 Body mass index [BMI] 19.9 or less, adult; I50.20 Unspecified systolic (congestive) heart failure; E87.6 Hypokalemia; I11.0 Hypertensive heart disease with heart failure; E66.9 Obesity, unspecified; F17.200 Nicotine dependence, unspecified, uncomplicated; Z85.038 Personal history of other malignant neoplasm of large intestine; Z71.3 Dietary counseling and surveillance; Z72.89 Other problems related to lifestyle
CPT/HCPCS: 36415; 71275; 74176; 80048; 80053; 80076; 81001; 81025; 82140; 83036; 83690; 83735; 85025; 85610; 85730; 87040; 90471; 90686; 93005; 93010; 93306; 96361; 96365; 96367; 96372; 96375; 99406; G0378; G0008; J0456; J0696; J1650; J1956; J2270; J2405; J7030; J7042; J7050; Q9967